=== PATIENT | male | born 1950 | race Caucasian/White ===

== ENCOUNTER → 2020-08-18 | Outpatient (CLI) | payer MEDICARE ==
[~2020-08-18] MED LIST: ASPIR 8181 MG PO; CEFUROXIME500 MG PO; CIPRO500 MG PO
== END ==
LOC: KOH-I 12:50
DX: M54.9 Dorsalgia, unspecified (principal); R05 Cough; J84.9 Interstitial pulmonary disease, unspecified; M47.812 Spondylosis without myelopathy or radiculopathy, cervical region; M25.78 Osteophyte, vertebrae; S22.059A Unspecified fracture of T5-T6 vertebra, initial encounter for closed fracture; S22.069D Unspecified fracture of T7-T8 vertebra, subsequent encounter for fracture with routine healing; M85.88 Other specified disorders of bone density and structure, other site; X58.XXXA Exposure to other specified factors, initial encounter; Z98.1 Arthrodesis status
CPT/HCPCS: 71046; 72050; 72070; 72100

== ENCOUNTER → 2021-12-23 | Outpatient (CLI) | payer MEDICARE | LOC: KOH-I 14:36 | DX: M54.2 Cervicalgia (principal); M54.6 Pain in thoracic spine; M54.50 Low back pain, unspecified; R05.9 Cough, unspecified; M47.812 Spondylosis without myelopathy or radiculopathy, cervical region; M47.814 Spondylosis without myelopathy or radiculopathy, thoracic region; M43.8X4 Other specified deforming dorsopathies, thoracic region; M47.816 Spondylosis without myelopathy or radiculopathy, lumbar region | CPT/HCPCS: 71046; 72040; 72070; 72100 ==

== ENCOUNTER 2022-04-08 10:25 | Observation (INO) | payer MEDICARE ==
[~2022-04-08] VITALS: Ht 170.2 cm; Wt 71.7 kg
[2022-04-08 11:20] LABS: HEMOGLOBIN 16.7 gm/dl (14.0-17.5); RED BLOOD COUNT 5.29 M/UL (4.20-5.50); WHITE BLOOD COUNT 15.1 K/UL (4.5-11.0)
[2022-04-08 11:43] LABS: BUN/CREATININE RATIO 31 (0-10)
[2022-04-08] MEDS ORDERED: GABAPENTIN800 MG PO (16:58)
[2022-04-08] MEDS ORDERED: CLONIDINE HCL0.1 MG PO (17:01)
[2022-04-08] MEDS ORDERED: LISINOPRIL-HCT1 EAC2 PO (17:01)
[2022-04-08] MEDS ORDERED: PAROXETINE HCL10 MG PO (17:02)
[2022-04-08] MEDS ORDERED: VIAGRA100 MG PO (17:06)
[2022-04-09 03:30] LABS: HEMOGLOBIN 14.8 gm/dl (14.0-17.5)
[2022-04-09 03:32] LABS: RED BLOOD COUNT 4.7 M/UL (4.20-5.50)
[2022-04-10 04:29] LABS: WHITE BLOOD COUNT 15.4 K/UL (4.5-11.0)
[2022-04-10 04:42] LABS: BUN/CREATININE RATIO 26 (0-10)
[2022-04-10 05:12] LABS: RED BLOOD COUNT 3.03 M/UL (4.20-5.50)
[2022-04-10 05:13] LABS: HEMOGLOBIN 9.7 gm/dl (14.0-17.5)
[2022-04-10] MEDS ORDERED: METFORMIN HCL1000 MG PO (11:38)
[2022-04-10] MEDS ORDERED: COREG25 MG PO (11:38)
[2022-04-10] MEDS ORDERED: PROTONIX 40 MG40 M1 PO (11:38)
[2022-04-10] MEDS ORDERED: JARDIANCE10 MG PO (11:38)
--- NOTE | 2022-04-10 12:31 | NUR ---
PATIENT FELT LIGHT HEADED DURING PT EVAL. BP WAS 154/104 AND HE SAID HE WAS NOT SHORT OF BREATHE OR HAVING CHEST PAIN. THE PATIENT HAS BEEN WITHOUT HIS BP MEDS SINCE HIS ADMISSION.DR RUBALCAVA SAID WE NEEDED TO GO AHEAD AND DO LABETALOL 20 MG IVP AND PROCEED ITH HIS DISCHARGE. PATIENT AND PHYSICAL THERAPY WAS INFORMED OF DR LITTLEJOHN DISCISION.
--- NOTE | 2022-04-10 13:21 | NUR ---
PATIENT BLOOD PRESSURE WAS 167/109 , INFORMED DR RUBALCAVA AND HE SAID TO GIVE ANOTHER LABETALOL 20MG IVP. MEDS WHERE ADMINSTERED BY MALLORY JANG. WILL RECHECK BLOOD PRESSURE ON 30 MINUTES.
--- NOTE | 2022-04-10 14:20 | NUR ---
PATIENT BLOOD PRESSURE WAS 153/97 AND PULSE WAS 85. PER DR RUBALCAVA PATIENT OK TO BE DISCHARGED.
[2022-04-13 15:11] LABS: HEMOGLOBIN A1C 10.1 % (4.8-5.6)
== END 2022-04-10 15:19 | disposition other institution (70) ==
LOC: ER1 10:25 → M/S 17:40
PROVIDERS: Emergency Medicine; Physician Assistant Medical; ADMIT Internal Medicine
DX: N17.9 Acute kidney failure, unspecified (principal); E11.65 Type 2 diabetes mellitus with hyperglycemia; I10 Essential (primary) hypertension; M85.68 Other cyst of bone, other site; F32.A Depression, unspecified; F41.9 Anxiety disorder, unspecified; N40.0 Benign prostatic hyperplasia without lower urinary tract symptoms; K82.8 Other specified diseases of gallbladder; Z88.0 Allergy status to penicillin; Z88.6 Allergy status to analgesic agent; Z85.46 Personal history of malignant neoplasm of prostate; Z87.442 Personal history of urinary calculi; Z79.899 Other long term (current) drug therapy
CPT/HCPCS: 36415; 36600; 71045; 76705; 80048; 80053; 81001; 82009; 82550; 82553; 82803; 82962; 83036; 83605; 83690; 83735; 83880; 84100; 84153; 84484; 85025; 85027; 87040; 93005; 96374; 96375; 96376; 97162; 97530; 99285; C9113; G0378; J7040; Q9967